=== PATIENT | male | born 1970 | race Hispanic/Latino ===

== ENCOUNTER 2021-02-08 14:11 | Outpatient (CLI) | payer OTHER | END 2021-02-08 14:12 | disposition home or self-care (01) | LOC: BICMRI 14:11 → MRI 14:12 | PROVIDERS: ATTEND Physician Assistant | DX: M25.511 Pain in right shoulder (principal); M19.011 Primary osteoarthritis, right shoulder; S43.431D Superior glenoid labrum lesion of right shoulder, subsequent encounter ==

== ENCOUNTER 2021-11-23 06:06 | Day surgery (SDC) | payer BC ==
[2021-11-22 10:39] VITALS: BMI 28.1
[2021-11-23] MEDS ORDERED: B & O ONE (07:26)
[2021-11-23] MEDS ORDERED: Levofloxacin 500 mg/D5W 100 ml Premix Bag ONE (07:28)
[2021-11-23] MEDS ORDERED: Fentanyl 100 MCG/2 ML VIAL ONE ×2 (07:29→10:10)
[2021-11-23] MEDS ORDERED: Lidocaine 1% MPF 2 ML VIAL ONE (07:42)
[2021-11-23] MEDS ORDERED: PROPOFOL 200 MG/20 ML VIAL ONE (07:42)
[2021-11-23] MEDS ORDERED: Metoclopramide HCl 10 MG/2 ML VIAL ONE (07:42)
[2021-11-23] MEDS ORDERED: Dexamethasone 20 MG/5 ML VIAL ONE (07:42)
[2021-11-23] MEDS ORDERED: Ondansetron PF 4 MG/2 ML Vial ONE (07:42)
[2021-11-23] MEDS ORDERED: Oxybutynin 5 MG TAB ONE (08:58)
== END 2021-11-23 11:58 | disposition home or self-care (01) ==
LOC: SDC 06:06
PROVIDERS: ATTEND Urology
PROC: 0VT08ZZ Resection of Prostate, Via Natural or Artificial Opening Endoscopic (ICD-10-PCS; principal; 2021-11-23)
DX: N40.1 Benign prostatic hyperplasia with lower urinary tract symptoms (principal); N13.8 Other obstructive and reflux uropathy; R33.8 Other retention of urine; Z79.899 Other long term (current) drug therapy
CPT/HCPCS: J1100; J1956; J2405; J2704; J2765; J3010